=== PATIENT | male | born 1965 | race Caucasian/White ===

== ENCOUNTER 2018-12-21 16:47 | Emergency (ER) | payer OTHER ==
[~2018-12-21] VITALS: Ht 190.5 cm; Wt 215.0 kg
[2018-12-21] MEDS ORDERED: WELL100T2 PO (16:52)
[2018-12-21] MEDS ORDERED: NS 1,000 ML IV ONE (18:15)
--- NOTE | 2018-12-21 18:30 | REP ---
Clinical: Dizziness and weakness. Technique: PA and lateral. Comparison: None. Findings: Right hilar prominence may reflect adenopathy versus prominent pulmonary vasculature. Cardiac silhouette is normal. Lung da silva are clear. No consolidation, effusion, or pneumothorax. Skeletal structures are intact. Impression: Cannot exclude mild right hilar prominence. Electronically Signed by Ryan Hartman MD 12/21/2018 06:22 P
[2018-12-21 18:54] LABS: BASO % 0.6 % (0.0-1.0); EOS # 0.1 10^3/uL (0.0-0.50); EOS % 1.4 % (0.0-3.0); HEMATOCRIT 41.7 % (42.0-52.0); HEMOGLOBIN 14.2 g/dl (13.5-17.5); LYMPH # 0.4 10^3/uL (1.5-4.5); LYMPH % 6.1 % (24.0-44.0); MEAN CORPUSCULAR HGB CONC 34.1 g/dl (32.0-36.5); MONO # 0.7 10^3/uL (0.0-0.8); NEUTROPHILS # 5.8 10^3/uL (1.8-7.7); NEUTROPHILS % 81.5 % (36.0-66.0); PLATELET COUNT, AUTOMATED 227 10^3/uL (150-450); RED BLOOD COUNT 4.74 10^6/uL (4.30-6.10); WHITE BLOOD COUNT 7.1 10^3/uL (4.0-10.0)
[2018-12-21 19:26] LABS: ALBUMIN 4.3 GM/DL (3.2-5.2); ALT/SGPT 24 U/L (12-78); BILIRUBIN,TOTAL 0.7 MG/DL (0.2-1.0); BLOOD UREA NITROGEN 17 MG/DL (7-18); CALCIUM LEVEL 9.3 MG/DL (8.5-10.1); CARBON DIOXIDE LEVEL 30 MEQ/L (21-32); CHLORIDE LEVEL 96 MEQ/L (98-107); CPK CREATINE PHOSPHOKINASE 189 U/L (39-308); CREATININE FOR GFR 1.08 MG/DL (0.70-1.30); GLOMERULAR FILTRATION RATE > 60.0 (>56); GLUCOSE, FASTING 92 MG/DL (70-100); MB/CK RELATIVE INDEX 0.69 (< OR =4); POTASSIUM SERUM 4.2 MEQ/L (3.5-5.1); SODIUM LEVEL 135 MEQ/L (136-145); TOTAL PROTEIN 7.2 GM/DL (6.4-8.2); TROPONIN I < 0.02 NG/ML (< 0.10)
[2018-12-21 19:30] LABS: INFLUENZA A AMPLIFICATION POSITIVE (NEGATIVE); INFLUENZA B AMPLIFICATION NEGATIVE (NEGATIVE)
[2018-12-21 19:45] VITALS: BP 143/76
--- NOTE | 2018-12-22 09:28 | ECGEPIP ---
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
== END 2018-12-21 19:50 | disposition home or self-care (01) ==
LOC: M ED 16:47
DX: J09.X9 Influenza due to identified novel influenza A virus with other manifestations (principal); R94.31 Abnormal electrocardiogram [ECG] [EKG]; E66.01 Morbid (severe) obesity due to excess calories; I10 Essential (primary) hypertension; F43.10 Post-traumatic stress disorder, unspecified; F17.200 Nicotine dependence, unspecified, uncomplicated; Z79.899 Other long term (current) drug therapy

== ENCOUNTER 2021-03-18 18:19 | Inpatient (IN) | payer OTHER ==
[~2021-03-18] VITALS: Ht 190.5 cm; Wt 215.9 kg
[~2021-03-18 18:19] MED LIST: WELL100T2 PO
[2021-03-18] MEDS ORDERED: ACETAMINOPHEN 325 MG TAB PO ONE (19:20)
[2021-03-18] MEDS ORDERED: NS 500 ML IV ONE ×2 (19:20→21:45)
[2021-03-18 19:49] LABS: BASO % 0.2 % (0.0-1.0); EOS % 0.1 % (0.0-3.0); HEMATOCRIT 40.1 % (42.0-52.0); HEMOGLOBIN 13.2 g/dl (13.5-17.5); LYMPH # 0.3 10^3/uL (1.5-5.0); LYMPH % 1.8 % (24.0-44.0); MEAN CORPUSCULAR HEMOGLOBIN 28.8 pg (27.0-33.0); MEAN CORPUSCULAR HGB CONC 32.9 g/dl (32.0-36.5); MEAN CORPUSCULAR VOLUME 87.6 fl (80.0-96.0); MONO # 0.5 10^3/uL (0.0-0.8); MONO % 3.4 % (2.0-8.0); NEUTROPHILS # 14.5 10^3/uL (1.5-8.5); NEUTROPHILS % 93.6 % (36.0-66.0); PLATELET COUNT, AUTOMATED 212 10^3/uL (150-450); RED BLOOD COUNT 4.58 10^6/uL (4.30-6.10); WHITE BLOOD COUNT 15.4 10^3/uL (4.0-10.0)
--- NOTE | 2021-03-18 19:49 | REP ---
INDICATION: leg swelling. COMPARISON: 12/21/2018 TECHNIQUE: PORTABLE FINDINGS: The technique utilized in obtaining the radiograph has magnified the cardiac silhouette and attenuated the interstitial markings. THERE APPEARS TO BE THE DEVELOPMENT OF A SUBTLE OPACITY IN THE RIGHT LOWER LOBE, HOWEVER, THE EXAM IS PORTABLE AND THE RIGHT CP ANGLE AT HAS NOT BEEN INCLUDED ON THE RADIOGRAPH. THERE IS CARDIOMEGALY SUSPECTED BUT ACCENTUATED BY TECHNIQUE. THE OSSEOUS STRUCTURES ARE WITHIN NORMAL LIMITS. IMPRESSION: POSSIBLE DEVELOPING RIGHT LOWER LOBE PNEUMONIA. PA AND LATERAL VIEWS OF THE CHEST RECOMMENDED. <Electronically signed by Bill Lawler > 03/18/211944
[2021-03-18 19:53] LABS: ALBUMIN 3.9 GM/DL (3.2-5.2); ALT/SGPT 28 U/L (12-78); BILIRUBIN,DIRECT 0.3 MG/DL (0.0-0.2); BILIRUBIN,TOTAL 0.9 MG/DL (0.2-1.0); BLOOD UREA NITROGEN 21 MG/DL (7-18); C REACTIVE PROTEIN QUANTITATIV 3.26 MG/DL (0.00-0.30); CALCIUM LEVEL 8.7 MG/DL (8.5-10.1); CARBON DIOXIDE LEVEL 28 MEQ/L (21-32); CHLORIDE LEVEL 100 MEQ/L (98-107); CK-MB VALUE MASS < 1.0 NG/ML (<3.6); CPK CREATINE PHOSPHOKINASE 131 U/L (39-308); CREATININE FOR GFR 1.11 MG/DL (0.70-1.30); GLOMERULAR FILTRATION RATE > 60.0 (>56); GLUCOSE, FASTING 106 MG/DL (70-100); MB/CK RELATIVE INDEX 0.76 (< OR =4); POTASSIUM SERUM 3.8 MEQ/L (3.5-5.1); SODIUM LEVEL 133 MEQ/L (136-145); TOTAL PROTEIN 6.9 GM/DL (6.4-8.2); TROPONIN I < 0.02 NG/ML (< 0.10)
[2021-03-18 20:41] LABS: ERYTHROCYTE SEDIMENTATION RATE 17 mm/hr (0-20)
[2021-03-18] MEDS ORDERED: CEFTAROLINE FOSAMIL 600 MG in D5W MINI-BAG PLUS 50 ML IV ONE (21:15)
--- NOTE | 2021-03-18 21:27 | ECGEPIP ---
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
[2021-03-18] MEDS ORDERED: IBUPROFEN 800 MG TAB PO ONE (21:45)
--- NOTE | 2021-03-18 21:45 | REPVR ---
PROCEDURE INFORMATION: Exam: XR Chest Exam date and time: 03/18/2021 9:06 PM Age: 55 years old Clinical indication: Shortness of breath; Additional info: Further evaluate for rll pneumonia TECHNIQUE: Imaging protocol: XR of the chest. Views: 2 views. COMPARISON: TX Chest, 1 view 03/18/2021 7:31 PM FINDINGS: Lungs: Unremarkable. No consolidation. Pleural spaces: Unremarkable. No pleural effusion. No pneumothorax. Heart/Mediastinum: Unremarkable. No cardiomegaly. Bones/joints: Unremarkable. IMPRESSION: No acute findings. Electronically signed by: Braulio Abreu On 03/18/2021 21:45:03 PM
[2021-03-18 22:17] LABS: RSV AMPLIFICATION NEGATIVE (NEGATIVE)
[2021-03-18] MEDS ORDERED: MOM 30ML SUSPENSION UDC PO PRN (23:25)
[2021-03-18] MEDS ORDERED: VANCOMYCIN HCL 1,000 MG, VIAL MATE ADAPTER 1 EACH in NS 250 ML IV SCH (23:25)
[2021-03-18] MEDS ORDERED: MAALOX 30 ML SUSP *UDC PO PRN (23:25)
[2021-03-19] MEDS ORDERED: LATU80TA PO (00:19)
[2021-03-19] MEDS ORDERED: TRIA37.53 PO (00:19)
[2021-03-19] MEDS ORDERED: MELO15TA28 PO (00:19)
[2021-03-19] MEDS ORDERED: LISI30TA4 PO (00:19)
[2021-03-19] MEDS ORDERED: MULTLIQ7 PO (00:19)
[2021-03-19] MEDS ORDERED: DICL1GEL3 TOP (00:19)
[2021-03-19] MEDS ORDERED: CRES40TA PO (00:19)
[2021-03-19] MEDS ORDERED: POTA1TAB23 PO (00:19)
[2021-03-19] MEDS ORDERED: BUPR300T92 PO (00:19)
[2021-03-19] MEDS ORDERED: VANCOMYCIN HCL 1,000 MG, VIAL MATE ADAPTER 1 EACH in NS 250 ML IV ONE ×4 (01:00)
--- NOTE | 2021-03-19 01:03 | HPEPDOC ---
[facility] Medical History & Physical Date of Admission Mar 19, 2021 Date of Service: Mar 19, 2021 History and Physical CHIEF COMPLAINT: Right leg erythema and drainage HISTORY OF PRESENT ILLNESS: The patient is a 55 male with a past medical history of hypertension, hypercholesterolemia, obstructive sleep apnea on CPAP at home, PTSD, depression, presents with reported history of right leg swelling, erythema and drainage from the anterior aspect of tibia. He reports mowing the lawn and scratching his leg on some bushes. On arrival to the ED, found to have leukocytosis of 15.4, as well as fever to 102.6 and tachycardia of 108. Patient also had finally able crawl pressures are 100/50. Lactic acid 1.4. Patient was given a dose of Ceftin earlier in the ER. Patient will be admitted to hospitalist service for management of sepsis secondary to right lower extremity cellulitis. Patient started on empiric vancomycin. PAST MEDICAL HISTORY: HTN HLD MYRA on CPAP PTSD Depression Osteoarthritis of bilateral knees SOCIAL HISTORY: Former smoker, quit 3 years ago Denies etoh use Denies illicit drug use Lives with girlfriend at home Uses walker and cane FAMILY HISTORY: reviewed with patient, no relevant hx reported ALLERGIES: Please see below. REVIEW OF SYSTEMS: 10 point ROS completed, relevant findings are noted in HPI. HOME MEDICATIONS: Please see below. PHYSICAL EXAMINATION: VITAL SIGNS: please see below General: NAD, comfortable HEENT: PERRLA, EOMI, sclerae clear Neck: supple, normal ROM, no JVD Respiratory: lungs CTAB, no wheeze, no rales, no crackles CVS: RRR, normal S1, S2, no murmurs Abdo: soft, no masses, no hepatosplenomegaly, BS+, no rebound tenderness Extremities: 2+ gravity dependent edema, chronic venous stasis changes. R leg mid nava aspect drainage from area of erythema MSK: no joint deformities, normal ROM Neuro: no focal neuro deficits, moving all 4 extremities, CN2-12 intact. Strength 5/5 in all 4 extremities. No nystagmus. Psych: calm, cooperative, AAO x 3 LABORATORY DATA: See below. IMAGIN view CXR (03/18/21): FINDINGS: Lungs: Unremarkable. No consolidation. Pleural spaces: Unremarkable. No pleural effusion. No pneumothorax. Heart/Mediastinum: Unremarkable. No cardiomegaly. Bones/joints: Unremarkable. IMPRESSION: No acute findings. MICROBIOLOGY: Please see below. ASSESSMENT: 55 male with a past medical history of hypertension, hype rcholesterolemia, obstructive sleep apnea on CPAP at home, PTSD, depression, presents with reported history of right leg swelling, erythema and drainage from the anterior aspect of tibia. Diagnosed with cellulitis. Meets sepsis criteria. PLAN: #Sepsis 2/2 RLE purulent cellulitis - meets criteria based on tachycardia, fever, leukocytosis of 15.4. Known source - received dose of ceftaroline in ER - c/w antibiotics therapy, vancomycin - ordered venous duplex to r/o DVT bilateral LE - blood cultures sent. Wound culture of purluent material sent #MYRA - nocturnal O2 - can bring home CPAP #HTN - resume lisinopril 15 mg daily - resume triamterene/HCTZ 37.5/25 #depression/PTSD - takes latuda, buproprion XL. Resume. #Morbid obesity - BMI 59.5 - complicates care DVT ppx: heparin, SCDs. TEDs. Vital Signs Vital Signs Date Time Temp Pulse Resp B/P (MAP) Pulse Ox O2 Delivery O2 Flow Rate FiO2 03/18/21 23:30 98.9 87 20 103/58 (73) 99 Room Air Laboratory Data Labs 24H Laboratory Tests 2 03/18/21 18:51: Lactic Acid Level 1.4 03/18/21 19:19: Immature Granulocyte % (Auto) 0.9, Neutrophils (%) (Auto) 93.6H, Lymphocytes (%) (Auto) 1.8L, Monocytes (%) (Auto) 3.4, Eosinophils (%) (Auto) 0.1, Basophils (%) (Auto) 0.2, Neutrophils # (Auto) 14.5H, Lymphocytes # (Auto) 0.3L, Monocytes # (Auto) 0.5, Eosinophils # (Auto) 0.0, Basophils # (Auto) 0.0, Nucleated Red Blood Cells % (auto) 0.0, Erythrocyte Sedimentation Rate 17, Anion Gap 5L, Glomerular Filtration Rate > 60.0, Calcium Level 8.7, Total Bilirubin 0.9, Direct Bilirubin 0.3H, Aspartate Amino Transf (AST/SGOT) 19, Alanine Aminotransferase (ALT/SGPT) 28, Alkaline Phosphatase 76, Total Creatine Kinase 131, Creatine Kinase MB < 1.0, Creatine Kinase MB Relative Index 0.76, Troponin I < 0.02, C-Reactive Protein, Quantitative 3.26H, Total Protein 6.9, Albumin 3.9, Albumin/Globulin Ratio 1.3 03/18/21 21:30: Coronavirus (COVID-19)(PCR) NEGATIVE, Influenza Type A (RT-PCR) NEGATIVE, Influenza Type B (RT-PCR) NEGATIVE, Respiratory Syncytial Virus (PCR) NEGATIVE CBC/BMP Laboratory Tests 03/18/21 19:19 Microbiology Microbiology 03/18/21 Blood Culture, Received Pending 03/18/21 Blood Culture, Received Pending Home Medications Scheduled Bupropion HCl (Bupropion Xl) 300 Mg Tab.er.24h, 300 MG PO DAILY Lisinopril (Lisinopril) 30 Mg Tablet, 15 MG PO DAILY Lurasidone HCl (Latuda) 80 Mg Tablet, 40 MG PO DAILY Meloxicam (Meloxicam) 15 Mg Tablet, 15 MG PO DAILY Multivit-Minerals/Ferrous Fum (Multivitamin Liquid) 9 Mg/15 Ml Liquid, 15 ML PO BIDWM Potassium Chloride (Potassium Chloride) 10 Meq Tablet.er, 20 MEQ PO DAILY Rosuvastatin Calcium (Crestor) 40 Mg Tablet, 40 MG PO DAILY Triamterene/Hydrochlorothiazid (Triamterene-Hctz 37.5-25 mg Cp) 1 Each Capsule, 1 CAP PO DAILY Scheduled PRN Diclofenac Sodium (Diclofenac Sodium) 1% 100GM Gel..gram., 4 GM TOP QID PRN for PAIN LEVEL 1-5 APPLIES TO HANDS AND KNEES Allergies Coded Allergies: bee venom protein (honey bee) (Verified Allergy, Severe, 03/18/21) YOLI MEAD MD Mar 19, 2021 01:03
--- NOTE | 2021-03-19 01:49 | REPVR ---
PROCEDURE INFORMATION: Exam: US Duplex Lower Extremity Veins, Bilateral Exam date and time: 03/18/2021 12:29 AM Age: 55 years old Clinical indication: Edema, localized; Lower extremity, bilateral; Additional info: R/O dvt TECHNIQUE: Imaging protocol: Real-time duplex ultrasound of the extremities with 2-D jiménez scale, color Doppler flow and spectral waveform analysis with image documentation. Complete exam focused on the bilateral lower extremity veins. COMPARISON: No relevant prior studies available. FINDINGS: The calf veins are not identified bilaterally secondary to body habitus, and therefore could not be evaluated for the presence of calf vein DVT. If there is clinical suspicion for calf vein DVT, for imaging purposes, lower extremity venogram may be necessary in this patient. There is spontaneous, phasic color flow and compressibility of the deep veins otherwise. Augmentation to flow is noted. There is no evidence of DVT in the evaluated bilateral lower extremities. The visualized bilateral proximal greater saphenous veins are patent. No perivenous soft tissue fluid collection seen within the visualized field of view. IMPRESSION: The calf veins could not be evaluated as discussed above. No evidence of DVT in the visualized bilateral lower extremities otherwise. Electronically signed by: Keith Kent On 03/19/2021 01:49:09 AM
[2021-03-19] MEDS: HEPARIN SOD (PORCINE) 5000UNITS/ML 1ML VIAL/SYRINGE SC SCH ×3 (06:12→21:07)
[2021-03-19 07:17] LABS: BASO % 0.1 % (0.0-1.0); HEMATOCRIT 38.9 % (42.0-52.0); HEMOGLOBIN 12.7 g/dl (13.5-17.5); LYMPH # 0.3 10^3/uL (1.5-5.0); LYMPH % 2.1 % (24.0-44.0); MEAN CORPUSCULAR HEMOGLOBIN 29.2 pg (27.0-33.0); MEAN CORPUSCULAR HGB CONC 32.6 g/dl (32.0-36.5); MEAN CORPUSCULAR VOLUME 89.4 fl (80.0-96.0); MONO # 0.5 10^3/uL (0.0-0.8); MONO % 3.2 % (2.0-8.0); NEUTROPHILS # 15.2 10^3/uL (1.5-8.5); NEUTROPHILS % 93.8 % (36.0-66.0); PLATELET COUNT, AUTOMATED 181 10^3/uL (150-450); RED BLOOD COUNT 4.35 10^6/uL (4.30-6.10); WHITE BLOOD COUNT 16.2 10^3/uL (4.0-10.0)
[2021-03-19 07:35] LABS: HEMOGLOBIN A1c 5.4 %
[2021-03-19 07:50] LABS: ALBUMIN 3.3 GM/DL (3.2-5.2); C REACTIVE PROTEIN QUANTITATIV 14.9 MG/DL (0.00-0.30); CALCIUM LEVEL 8.7 MG/DL (8.5-10.1); CREATININE FOR GFR 1.35 MG/DL (0.70-1.30); GLOMERULAR FILTRATION RATE 58.9 (>56); MAGNESIUM LEVEL 1.6 MG/DL (1.8-2.4); POTASSIUM SERUM 4.1 MEQ/L (3.5-5.1); TOTAL PROTEIN 6.4 GM/DL (6.4-8.2)
[2021-03-19] MEDS ORDERED: buPROPion **XL** TABLET 150MG (WELLBUTRIN XL) PO SCH (09:00)
[2021-03-19] MEDS ORDERED: LURASIDONE HCL 40 MG TAB (LATUDA) PO SCH (09:00)
[2021-03-19] MEDS: POTASSIUM CHLORIDE 10 MEQ SR TABLET PO SCH (09:02)
[2021-03-19] MEDS: DOCUSATE SODIUM 100MG CAPSULE PO SCH ×2 (09:02→21:06)
[2021-03-19] MEDS: ACETAMINOPHEN TAB 650MG DOSE (2X325MG) PO PRN ×2 (09:03→19:37)
[2021-03-19] MEDS: lisinopriL 5 MG TAB PO SCH (09:03)
[2021-03-19] MEDS: ROSUVASTATIN 10 MG TAB (CRESTOR) PO SCH (09:04)
[2021-03-19] MEDS: VANCOMYCIN HCL 750 MG, VIAL MATE ADAPTER 1 EACH in NS 250 ML IV SCH ×4 (09:04→16:11)
[2021-03-19] MEDS: DYAZIDE 37.5/25 CAP (TRIAM/HCTZ) PO SCH (10:18)
[2021-03-19 14:45] VITALS: BP 119/77
--- NOTE | 2021-03-19 15:24 | IPNPDOC ---
Date Seen The patient was seen on 03/19/21. Progress Note SUBJECTIVE: This is hospital day 2. Patient reports that he is feeling well. He denies any fevers, chills, night sweats at this time. This is day #1 of vancomycin. Patient received ceftaroline yesterday. Patient denies any nausea, vomiting, diarrhea, constipation at this time. He denies any numbness or tingling in his upper or lower extremities. He reports some residual pain in the right leg which is decreased from admission. OBJECTIVE PHYSICAL EXAMINATION: VITAL SIGNS: Please see below. GENERAL: Patient is lying back in bed in no acute distress, he is cooperative on exam, and able to answer questions appropriately. HEENT: Normocephalic, atraumatic. No scleral icterus, EOMI, nares patent, oropharyngeal mucosa moist. CARDIOVASCULAR: Distant heart sounds secondary to body habitus, S1 and S2 auscultated however no murmurs, rubs, gallops could be appreciated. RESPIRATORY: Clear to auscultation bilaterally with decreased heart sounds secondary to body habitus. ABDOMINAL: Soft, nontender, nondistended, bowel sounds present. There is an intertriginous rash present of lower abdominal fold. EXTREMITIES: Bilateral pitting edema present right greater than left. Anterior right lower extremity erythematous and pitting edema +2 present. There is a draining ulcer present on the anterior right lower extremity. Radial and pedal pulses equal and present bilaterally. NEUROLOGICAL: No motor or sensory loss of upper and lower extremities. Plus 5 out of 5 grossly. PSYCHOLOGICAL: Flat affect, alert and oriented x3. LABORATORY DATA, IMAGING STUDIES, MICROBIOLOGY: Please see below. ASSESSMENT AND PLAN: Pt is a 55 YO male with morbid obesity who presents with RLE cellulitis on day #2 of antibiotics and day #1 of vancomycin. (One day of ceftaroline.) #Sepsis 2/2 RLE cellulitis, resolving. Continue IV antibiotics; day 2 of abx, vancomycin day #1. Continue daily CBC with differential monitoring. No DVT present on vascular ultrasound. Given 500 mL NS. Wound culture showed no growth Blood cultures still pending. #MYRA Please continue to use nocturnal O2 Patient may use home CPAP #Hypertension Continue home lisinopril 15 mg daily Continue triamterene/HCTZ 37.5/25 home medication #Mood disorders including depression and PTSD Continue home Latuda, bupropion #Morbid obesity BMI 59.5 Complicates care DVT prophylaxis ordered: Heparin 5000 U TID DISPOSITION: Med/Surg. Consider possible discharge tomorrow if patient continues to show resolution of sepsis. VS, I&O, 24H, [place] Vital Signs/I&O Vital Signs Date Time Temp Pulse Resp B/P (MAP) Pulse Ox O2 Delivery O2 Flow Rate FiO2 03/19/21 12:15 97.8 70 20 125/62 (83) 96 Room Air I&O- Last 24 Hours up to 6 AM 03/19/21 06:00 Intake Total 1590 ml Balance 1590 ml Laboratory Data 24H LABS Laboratory Tests 2 03/18/21 18:51: Lactic Acid Level 1.4 03/18/21 19:19: Immature Granulocyte % (Auto) 0.9, Neutrophils (%) (Auto) 93.6H, Lymphocytes (%) (Auto) 1.8L, Monocytes (%) (Auto) 3.4, Eosinophils (%) (Auto) 0.1, Basophils (%) (Auto) 0.2, Neutrophils # (Auto) 14.5H, Lymphocytes # (Auto) 0.3L, Monocytes # (Auto) 0.5, Eosinophils # (Auto) 0.0, Basophils # (Auto) 0.0, Nucleated Red Blood Cells % (auto) 0.0, Erythrocyte Sedimentation Rate 17, Anion Gap 5L, Glomerular Filtration Rate > 60.0, Calcium Level 8.7, Total Bilirubin 0.9, Direct Bilirubin 0.3H, Aspartate Amino Transf (AST/SGOT) 19, Alanine Aminotransferase (ALT/SGPT) 28, Alkaline Phosphatase 76, Total Creatine Kinase 131, Creatine Kinase MB < 1.0, Creatine Kinase MB Relative Index 0.76, Troponin I < 0.02, C-Reactive Protein, Quantitative 3.26H, Total Protein 6.9, Albumin 3.9, Albumin/Globulin Ratio 1.3 03/18/21 21:30: Coronavirus (COVID-19)(PCR) NEGATIVE, Influenza Type A (RT-PCR) NEGATIVE, Influenza Type B (RT-PCR) NEGATIVE, Respiratory Syncytial Virus (PCR) NEGATIVE 03/19/21 07:04: Immature Granulocyte % (Auto) 0.8, Neutrophils (%) (Auto) 93.8H, Lymphocytes (%) (Auto) 2.1L, Monocytes (%) (Auto) 3.2, Eosinophils (%) (Auto) 0.0, Basophils (%) (Auto) 0.1, Neutrophils # (Auto) 15.2H, Lymphocytes # (Auto) 0.3L, Monocytes # (Auto) 0.5, Eosinophils # (Auto) 0.0, Basophils # (Auto) 0.0, Nucleated Red Blood Cells % (auto) 0.0, Anion Gap 6L, Glomerular Filtration Rate 58.9, Calcium Level 8.7, Total Bilirubin 1.0, Aspartate Amino Transf (AST/SGOT) 19, Alanine Aminotransferase (ALT/SGPT) 27, Alkaline Phosphatase 71, C-Reactive Protein, Quantitative 14.90H, Total Protein 6.4, Albumin 3.3, Albumin/Globulin Ratio 1.1, Estimated Mean Plasma Glucose 108, Hemoglobin A1c 5.4, Magnesium Level 1.6L CBC/BMP Laboratory Tests 03/18/21 19:19 03/19/21 07:04 Microbiology Microbiology 03/19/21 Gram Stain - Final, Resulted 03/19/21 Wound Culture, Resulted Pending 03/18/21 Blood Culture, Received Pending 03/18/21 Blood Culture, Received Pending GME ATTESTATION GME ATTESTATION My faculty preceptor for this patient encounter was physically present during the encounter and was fully available. All aspects of the patient interview, examination, medical decision making process, and medical care plan development were reviewed and approved by the faculty preceptor. The faculty preceptor is aware and concurs with the plan as stated in the body of this note and will attest to such by his/her cosignature. ATTENDING NOTE I personally examined the patient and discussed her findings and management as detailed by the resident physician above. Elvin Yi DO Mar 19, 2021 15:24 CORY LIMON MD Mar 20, 2021 07:37
[2021-03-19 22:00] VITALS: BP 149/78
[2021-03-20] MEDS: VANCOMYCIN HCL 750 MG, VIAL MATE ADAPTER 1 EACH in NS 250 ML IV SCH ×7 (00:10→23:45)
[2021-03-20 06:00] VITALS: BP 155/85
[2021-03-20 06:21] LABS: BASO % 0.2 % (0.0-1.0); EOS # 0.1 10^3/uL (0.0-0.5); EOS % 0.8 % (0.0-3.0); HEMATOCRIT 36.7 % (42.0-52.0); HEMOGLOBIN 11.9 g/dl (13.5-17.5); LYMPH # 0.9 10^3/uL (1.5-5.0); LYMPH % 10.5 % (24.0-44.0); MEAN CORPUSCULAR HEMOGLOBIN 28.7 pg (27.0-33.0); MEAN CORPUSCULAR HGB CONC 32.4 g/dl (32.0-36.5); MEAN CORPUSCULAR VOLUME 88.6 fl (80.0-96.0); MONO # 0.5 10^3/uL (0.0-0.8); MONO % 6.1 % (2.0-8.0); NEUTROPHILS % 81.9 % (36.0-66.0); PLATELET COUNT, AUTOMATED 166 10^3/uL (150-450); RED BLOOD COUNT 4.14 10^6/uL (4.30-6.10); WHITE BLOOD COUNT 8.5 10^3/uL (4.0-10.0)
[2021-03-20] MEDS: HEPARIN SOD (PORCINE) 5000UNITS/ML 1ML VIAL/SYRINGE SC SCH ×3 (06:27→21:05)
[2021-03-20 06:52] LABS: ALT/SGPT 25 U/L (12-78); BILIRUBIN,TOTAL 0.7 MG/DL (0.2-1.0); BLOOD UREA NITROGEN 14 MG/DL (7-18); CALCIUM LEVEL 8.6 MG/DL (8.5-10.1); CARBON DIOXIDE LEVEL 29 MEQ/L (21-32); CHLORIDE LEVEL 102 MEQ/L (98-107); CREATININE FOR GFR 1.02 MG/DL (0.70-1.30); GLOMERULAR FILTRATION RATE > 60.0 (>56); GLUCOSE, FASTING 106 MG/DL (70-100); POTASSIUM SERUM 3.4 MEQ/L (3.5-5.1); SODIUM LEVEL 136 MEQ/L (136-145)
[2021-03-20 08:00] VITALS: BP 123/73
[2021-03-20] MEDS: POTASSIUM CHLORIDE 10 MEQ SR TABLET PO SCH (09:00)
[2021-03-20] MEDS ORDERED: NYSTATIN OINTMENT 15 GM TOP SCH (09:00)
[2021-03-20] MEDS ORDERED: POTASSIUM CHLORIDE 10 MEQ SR TABLET PO ONE (10:00)
[2021-03-20] MEDS: DOCUSATE SODIUM 100MG CAPSULE PO SCH ×2 (10:05→21:04)
[2021-03-20] MEDS: lisinopriL 5 MG TAB PO SCH (10:06)
[2021-03-20] MEDS: ROSUVASTATIN 10 MG TAB (CRESTOR) PO SCH (10:07)
[2021-03-20] MEDS: DYAZIDE 37.5/25 CAP (TRIAM/HCTZ) PO SCH (10:20)
--- NOTE | 2021-03-20 10:49 | IPNPDOC ---
Date Seen The patient was seen on 03/20/21. Progress Note SUBJECTIVE: This is hospital day 2. Patient reports feeling well and denies any fevers, chills, night sweats at this time. He does report that he had 1 recorded fever of 101.7 overnight which was well-managed on Tylenol. He is tolerating breakfast well and denies any nausea, vomiting, diarrhea, constipation at this time. Patient has requested for his Wellbutrin and Latuda to be moved to nighttime dosing as that is how he took it at home. OBJECTIVE PHYSICAL EXAMINATION: VITAL SIGNS: Please see below. GENERAL: Patient is lying back in bed in no acute distress, he is cooperative on exam, and able to answer questions appropriately. HEENT: Normocephalic, atraumatic. No scleral icterus, EOMI, nares patent, oropharyngeal mucosa moist. CARDIOVASCULAR: Distant heart sounds secondary to body habitus, S1 and S2 auscultated however no murmurs, rubs, gallops could be appreciated. RESPIRATORY: Clear to auscultation bilaterally with decreased heart sounds secondary to body habitus. ABDOMINAL: Soft, nontender, nondistended, bowel sounds present. There is an intertriginous rash present of lower abdominal fold. EXTREMITIES: Bilateral pitting edema present right greater than left. Anterior right lower extremity erythematous and pitting edema +2 present. There is a draining ulcer present on the anterior right lower extremity. Radial and pedal pulses equal and present bilaterally. Continues from yesterday. NEUROLOGICAL: No motor or sensory loss of upper and lower extremities. Plus 5 out of 5 grossly. PSYCHOLOGICAL: Flat affect, alert and oriented x3. LABORATORY DATA, IMAGING STUDIES, MICROBIOLOGY: Please see below. DVT prophylaxis ordered: ASSESSMENT AND PLAN: Pt is a 55 YO male with morbid obesity who presents with RLE cellulitis on day #3 of antibiotics and day #2 of vancomycin. (One day of ceftaroline on admission.) Patient's blood cultures are positive for gram-po sitive rods and the patient continues to have fevers intermittently. He is hospitalized for IV vancomycin for gram-positive grupo bacteremia. #Sepsis 2/2 RLE cellulitis, resolving. Continue IV antibiotics; day 2 of abx, vancomycin day #2. Continue daily CBC with differential monitoring. No DVT present on vascular ultrasound. Given 500 mL NS on 03/18/2021; patient is able to remain normotensive without IV fluid administration at this time. Wound culture shows growth of Corynebacterium. Blood cultures shows growth of gram-positive rods. Repeat blood cultures have been ordered. #Intertrigo noticed rash Likely fungal Start topical nystatin powder administration #MYRA Please continue to use nocturnal O2 Patient may use home CPAP #Hypertension Continue home lisinopril 15 mg daily Continue triamterene/HCTZ 37.5/25 home medication #Mood disorders including depression and PTSD Continue home Latuda, bupropion Switch to nighttime dosing. #Morbid obesity BMI 59.5 Complicates care DVT prophylaxis ordered: Heparin 5000 U TID. DISPOSITION: Med/Surg. Continue IV antibiotics with daily monitoring of CBC with differential due to bacteremia. VS, I&O, 24H, Fishbone Vital Signs/I&O Vital Signs Date Time Temp Pulse Resp B/P (MAP) Pulse Ox O2 Delivery O2 Flow Rate FiO2 03/20/21 10:06 123/73 03/20/21 08:00 98.0 91 18 94 Room Air I&O- Last 24 Hours up to 6 AM 03/20/21 06:00 Intake Total 1630 ml Output Total 4500 ml Balance -2870 ml Laboratory Data 24H LABS Laboratory Tests 2 03/19/21 15:08: Methicillin-Resist S.aureus DNA PCR NOT DETECTED 03/19/21 23:03: Vancomycin Level Trough 14.6 03/20/21 06:05: Immature Granulocyte % (Auto) 0.5, Neutrophils (%) (Auto) 81.9H, Lymphocytes (%) (Auto) 10.5L, Monocytes (%) (Auto) 6.1, Eosinophils (%) (Auto) 0.8, Basophils (%) (Auto) 0.2, Neutrophils # (Auto) 7.0, Lymphocytes # (Auto) 0.9L, Monocytes # (Auto) 0.5, Eosinophils # (Auto) 0.1, Basophils # (Auto) 0.0, Nucleated Red Blood Cells % (auto) 0.0, Anion Gap 5L, Glomerular Filtration Rate > 60.0, Calcium Level 8.6, Magnesium Level 2.0, Total Bilirubin 0.7, Aspartate Amino Transf (AST/SGOT) 15, Alanine Aminotransferase (ALT/SGPT) 25, Alkaline Phosphatase 74, C-Reactive Protein, Quantitative 18.90H, Total Protein 6.0L, Albumin 3.0L, Albumin/Globulin Ratio 1.0 CBC/BMP Laboratory Tests 03/20/21 06:05 Microbiology Microbiology 03/20/21 Blood Culture, Received Pending 03/19/21 Gram Stain - Final, Resulted 03/19/21 Wound Culture - Preliminary, Resulted Corynebacterium Species 03/18/21 Blood Culture - Preliminary, Resulted 03/18/21 Blood Culture - Preliminary, Resulted No growth after 24 hours . All specim... GME ATTESTATION GME ATTESTATION My faculty preceptor for this patient encounter was physically present during the encounter and was fully available. All aspects of the patient interview, examination, medical decision making process, and medical care plan development were reviewed and approved by the faculty preceptor. The faculty preceptor is aware and concurs with the plan as stated in the body of this note and will attest to such by his/her cosignature. ATTENDING NOTE I personally examined the patient and discussed the findings and plan as detailed above by the resident physician above. Elvin Yi DO Mar 20, 2021 10:49 CORY LIMON MD Mar 20, 2021 12:57
[2021-03-20 14:00] VITALS: BP 130/78
--- NOTE | 2021-03-20 16:24 | ECHO ---
ECHOCARDIOGRAM DATE OF PROCEDURE: 03/19/2021 Age: 55 Gender: Male Height: 75 inches Weight: 476 pounds Body surface area: 3.17 m2 Inpatient. REFERRING PHYSICIAN: Dr. Begum INDICATION: Edema. MEASUREMENTS: 2D Measurements: RV - 4.3 cm LV - 5.4 cm Septum 1.4 cm Posterior wall 1.4 cm Aortic root 4.5 cm Ascending aorta 4.2 cm Aortic arch 3.1 cm LYMPHADENOPATHY 4.8 cm LVEF 75% Doppler Measurements: AV - 1.7 m/s LVOT 1.19 m/s LVOT diameter 2.2 cm MV-E 87, A 66 E/A ratio 1.3 Early mitral deceleration time 193 msec E prime medial 7.5 A prime medial 11.5 E prime lateral 11.4 Average E/E prime ratio 9.2/PCWP 13.3 mmHg PV - 0.99 m/s Pulmonary artery acceleration time 84 msec PASP 44 mmHg? IVC - 3.1 c/m COMMENTS: Normal sinus rhythm without intermittent intraventricular conduction disturbance. Technically challenging study in light of patient's body habitus, but some diagnostically useful information was still obtained. M-mode and 2-dimensional echocardiography was performed with pulse, continuous wave, color flow, and tissue Doppler studies. Moderate symmetrical left ventricular hypertrophy with hyperkinetic wall motion. Moderately dilated left atrium with grade 2 LV diastolic dysfunction but currently normal estimated mean left atrial pressure. Mildly dilated right ventricle with normal wall motion and Doppler evidence of at least moderate pulmonary hypertension. Mild to moderately dilated right ventricle and inferior vena cava with reduced respiratory collapse, in keeping with an elevated central venous pressure. Mildly dilated aortic root and ascending aorta but normal aortic arch diameter. Mild aortic valvular sclerosis without stenosis. Could not rule out a trace to very mild degree of aortic insufficiency. Normal-appearing mitral valvular apparatus with no more than trace insufficiency. Normal-appearing tricuspid valve with only very mild insufficiency than was visible. No apparent intracardiac mass or pericardial effusion.
[2021-03-20] MEDS: NYSTATIN 100,000 UNITS/GM TOPICAL PWD 15 GM TOP SCH (17:04)
[2021-03-20] MEDS ORDERED: buPROPion **XL** TABLET 150MG (WELLBUTRIN XL) PO SCH (21:00)
[2021-03-20] MEDS ORDERED: LURASIDONE HCL 40 MG TAB (LATUDA) PO SCH (21:00)
[2021-03-20 22:00] VITALS: BP 138/75
[2021-03-21] MEDS: VANCOMYCIN HCL 750 MG, VIAL MATE ADAPTER 1 EACH in NS 250 ML IV SCH ×2 (01:16→07:46)
[2021-03-21] MEDS: HEPARIN SOD (PORCINE) 5000UNITS/ML 1ML VIAL/SYRINGE SC SCH (05:27)
[2021-03-21 06:00] VITALS: BP 139/66
[2021-03-21] MEDS: ACETAMINOPHEN TAB 650MG DOSE (2X325MG) PO PRN (06:08)
[2021-03-21 07:12] LABS: BASO % 0.6 % (0.0-1.0); EOS # 0.2 10^3/uL (0.0-0.5); EOS % 3.4 % (0.0-3.0); HEMATOCRIT 37.7 % (42.0-52.0); HEMOGLOBIN 12.2 g/dl (13.5-17.5); LYMPH % 19.5 % (24.0-44.0); MEAN CORPUSCULAR HGB CONC 32.4 g/dl (32.0-36.5); MEAN CORPUSCULAR VOLUME 89.8 fl (80.0-96.0); MONO # 0.5 10^3/uL (0.0-0.8); MONO % 9.1 % (2.0-8.0); NEUTROPHILS # 3.4 10^3/uL (1.5-8.5); PLATELET COUNT, AUTOMATED 190 10^3/uL (150-450); WHITE BLOOD COUNT 5.1 10^3/uL (4.0-10.0)
[2021-03-21 07:51] LABS: ALBUMIN 2.9 GM/DL (3.2-5.2); ALT/SGPT 51 U/L (12-78); BILIRUBIN,TOTAL 0.4 MG/DL (0.2-1.0); BLOOD UREA NITROGEN 13 MG/DL (7-18); CALCIUM LEVEL 8.9 MG/DL (8.5-10.1); CARBON DIOXIDE LEVEL 32 MEQ/L (21-32); CHLORIDE LEVEL 100 MEQ/L (98-107); CREATININE FOR GFR 1.05 MG/DL (0.70-1.30); GLOMERULAR FILTRATION RATE > 60.0 (>56); GLUCOSE, FASTING 142 MG/DL (70-100); MAGNESIUM LEVEL 1.9 MG/DL (1.8-2.4); POTASSIUM SERUM 3.8 MEQ/L (3.5-5.1); SODIUM LEVEL 135 MEQ/L (136-145); TOTAL PROTEIN 6.1 GM/DL (6.4-8.2)
[2021-03-21 08:00] VITALS: BP 120/68
[2021-03-21] MEDS ORDERED: NYSTATIN 100,000 UNITS/GM TOPICAL PWD 15 GM TOP SCH (09:00)
[2021-03-21] MEDS ORDERED: BACT800T5 PO (09:40)
[2021-03-21] MEDS ORDERED: NYST10006 TOP (09:40)
[2021-03-21] MEDS: DOCUSATE SODIUM 100MG CAPSULE PO SCH (10:01)
[2021-03-21] MEDS: NYSTATIN 100,000 UNITS/GM TOPICAL PWD 15 GM TOP SCH (10:01)
[2021-03-21 10:03] VITALS: BP 122/72
[2021-03-21] MEDS: lisinopriL 5 MG TAB PO SCH (10:03)
[2021-03-21] MEDS: DYAZIDE 37.5/25 CAP (TRIAM/HCTZ) PO SCH (10:04)
[2021-03-21] MEDS: POTASSIUM CHLORIDE 10 MEQ SR TABLET PO SCH (10:04)
[2021-03-21] MEDS: ROSUVASTATIN 10 MG TAB (CRESTOR) PO SCH (10:05)
--- NOTE | 2021-03-21 10:47 | DS.PDOC ---
Discharge Summary General Date of Admission Mar 18, 2021 at 18:20 Date of Discharge 03/21/2021 Attending Physician: CORY LIMON MD Discharge Summary PROCEDURES PERFORMED DURING STAY: None ADMITTING DIAGNOSES: RLE cellulitis DISCHARGE DIAGNOSES: RLE cellulitis sepsis 2/2 cellulitis Abdominal pannus fungal intertrigo Obesity HTN HLD MYRA on CPAP PTSD Depression Osteoarthritis of bilateral knees COMPLICATIONS/CHIEF COMPLAINT: Cellulitis Of R Lower Extremity. HISTORY OF PRESENT ILLNESS: 55 M with a past medical history of hypertension, hypercholesterolemia, obstruc tive sleep apnea on CPAP at home, PTSD, depression who presented with right leg swelling, erythema and drainage from the anterior aspect of tibia. He reported mowing the lawn and scratching his leg on some bushes and since then had become red and was draining some clear yellow fluids. HOSPITAL COURSE: On arrival to the ED, he found to have leukocytosis of 15.4, as well as fever to 102.6 and tachycardia of 108. Patient also had finally able crawl pressures are 100/50. Lactic acid 1.4. Patient was given a dose of Ceftin earlier in the ED and admitted to hospitalist service for management of sepsis secondary to right lower extremity cellulitis. Patient was started on empiric vancomycin with re solution of fevers and leukocytosis with improvement of RLE erythema and resolution of drainage. Wound culture grew Corynebacterium and coag negative staph while initial BCx had one bottle show GPRs on gram stain and 2nd set and repeat BCx were negative and was for now deemed a contaminant. He was t ransitioned to bactrim and is now being discharged with a 7d course of bactrim. He is also being discharged with nystatin powder for a fungal intertriginous rash. DISCHARGE MEDICATIONS: Please see below. ALLERGIES: Please see below. PHYSICAL EXAMINATION ON DISCHARGE: VITAL SIGNS: Please see below. GENERAL: NAD HEENT: Normocephalic, atraumatic. No scleral icterus, EOMI, nares patent, oropharyngeal mucosa moist. CARDIOVASCULAR: Distant, S1 and S2 auscultated , no murmurs, rubs, gallops could be appreciated. RESPIRATORY: Clear to auscultation bilaterally with decreased heart sounds secondary to body habitus. ABDOMINAL: Soft, nontender, nondistended, bowel sounds present. There is an intertriginous rash present of lower abdominal fold. EXTREMITIES: Improvement in R pitting edema with now receding anterior right lower extremity erythema and now dried previously draining shallow small ulcer on the anterior nava. Radial and pedal pulses equal and present bilaterally. NEUROLOGICAL: Grossly nonfocal examination PSYCHOLOGICAL: Aox3 LABORATORY DATA: Please see below. IMAGING: Bilateral LE venous doppler US: The calf veins could not be evaluated as discussed above. No evidence of DVT in the visualized bilateral lower extremities otherwise. CXR: POSSIBLE DEVELOPING RIGHT LOWER LOBE PNEUMONIA. PA AND LATERAL VIEWS OF THE CHEST RECOMMENDED. PA/lateral CXR: Lungs: Unremarkable. No consolidation. Pleural spaces: Unremarkable. No pleural effusion. No pneumothorax. Heart/Mediastinum: Unremarkable. No cardiomegaly. Bones/joints: Unremarkable. IMPRESSION: No acute findings. PROGNOSIS: Good ACTIVITY: As tolerated DIET: 2g sodium DISCHARGE PLAN: Home with bactrim, with close PCP follow up for BMP while on bactrim and resolution of cellulitis DISPOSITION: Home DISCHARGE INSTRUCTIONS: Home with bactrim, with close PCP follow up for BMP while on bactrim and resolut ion of cellulitis ITEMS TO FOLLOWUP ON ON OUTPATIENT: Cellulitis follow up BMP DISCHARGE CONDITION: Stable TIME SPENT ON DISCHARGE: 40 minutes. Vital Signs/I&Os Vital Signs Date Time Temp Pulse Resp B/P (MAP) Pulse Ox O2 Delivery O2 Flow Rate FiO2 03/21/21 08:00 97.4 81 18 120/68 (85) 94 Room Air I&O- Last 24 Hours up to 6 AM0 03/21/21 06:00 Intake Total 3990 ml Output Total 3000 ml Balance 990 ml Laboratory Data Labs 24H Laboratory Tests 2 03/21/21 07:00: Immature Granulocyte % (Auto) 0.4, Neutrophils (%) (Auto) 67.0H, Lymphocytes (%) (Auto) 19.5L, Monocytes (%) (Auto) 9.1H, Eosinophils (%) (Auto) 3.4H, Basophils (%) (Auto) 0.6, Neutrophils # (Auto) 3.4, Lymphocytes # (Auto) 1.0L, Monocytes # (Auto) 0.5, Eosinophils # (Auto) 0.2, Basophils # (Auto) 0.0, Nucleated Red Blood Cells % (auto) 0.0, Anion Gap 3L, Glomerular Filtration Rate > 60.0, Calcium Level 8.9, Magnesium Level 1.9, Total Bilirubin 0.4, Aspartate Amino Transf (AST/SGOT) 42H, Alanine Aminotransferase (ALT/SGPT) 51, Alkaline Phosphatase 86, C-Reactive Protein, Quantitative 11.70H, Total Protein 6.1L, Albumin 2.9L, Albumin/Globulin Ratio 0.9, Vancomycin Level Trough 21.9H CBC/BMP Laboratory Tests 03/21/21 07:00 Microbiology Microbiology 03/20/21 Blood Culture, Received Pending 03/20/21 Blood Culture - Preliminary, Resulted No growth after 24 hours . All specim... 03/19/21 Gram Stain - Final, Resulted 03/19/21 Wound Culture - Preliminary, Resulted Staphylococcus Sp Coag Neg Corynebacterium Species 03/18/21 Blood Culture - Preliminary, Resulted 03/18/21 Blood Culture - Preliminary, Resulted No Growth after 48 hours. All Specime... Discharge Medications Scheduled Bupropion HCl (Bupropion Xl) 300 Mg Tab.er.24h, 300 MG PO DAILY, (Reported) Lisinopril (Lisinopril) 30 Mg Tablet, 15 MG PO DAILY, (Reported) Lurasidone HCl (Latuda) 80 Mg Tablet, 40 MG PO DAILY, (Reported) Meloxicam (Meloxicam) 15 Mg Tablet, 15 MG PO DAILY, (Reported) Multivit-Minerals/Ferrous Fum (Multivitamin Liquid) 9 Mg/15 Ml Liquid, 15 ML PO BIDWM, (Reported) Nystatin (Nystop) 60 Gm Powder, 0 DOSE TOP DAILY Potassium Chloride (Potassium Chloride) 10 Meq Tablet.er, 20 MEQ PO DAILY, (Reported) Rosuvastatin Calcium (Crestor) 40 Mg Tablet, 40 MG PO DAILY, (Reported) Sulfamethoxazole/Trimethoprim (Bactrim Ds Tablet) 1 Each Tablet, 1 TAB PO BID Triamterene/Hydrochlorothiazid (Triamterene-Hctz 37.5-25 mg Cp) 1 Each Capsule, 1 CAP PO DAILY, (Reported) Scheduled PRN Diclofenac Sodium (Diclofenac Sodium) 1% 100GM Gel..gram., 4 GM TOP QID PRN for PAIN LEVEL 1-5, (Reported) APPLIES TO HANDS AND KNEES Allergies Coded Allergies: bee venom protein (honey bee) (Verified Allergy, Severe, 03/18/21) CORY LIMON MD Mar 21, 2021 09:52
[2021-03-21] MEDS ORDERED: VANCOMYCIN HCL 1,000 MG, VIAL MATE ADAPTER 1 EACH in NS 250 ML IV SCH (18:00)
== END 2021-03-21 12:35 | disposition home or self-care (01) | DRG 872 ==
LOC: EDBD 18:19 → M ED 18:19 → M ED INP 18:20 → ENRESERV 03-19 12:41 → M MS5PR 03-19 14:45 → OBSVTOIN 03-20 10:28
PROVIDERS: ADMIT Family Medicine; ATTEND Internal Medicine
DX: A41.9 Sepsis, unspecified organism (principal); L03.115 Cellulitis of right lower limb; Z68.43 Body mass index [BMI] 50.0-59.9, adult; I10 Essential (primary) hypertension; E78.5 Hyperlipidemia, unspecified; G47.33 Obstructive sleep apnea (adult) (pediatric); F43.10 Post-traumatic stress disorder, unspecified; E66.01 Morbid (severe) obesity due to excess calories; L30.4 Erythema intertrigo; F32.9 Major depressive disorder, single episode, unspecified; M17.0 Bilateral primary osteoarthritis of knee; Z87.891 Personal history of nicotine dependence; Z20.822 Contact with and (suspected) exposure to COVID-19; Z79.1 Long term (current) use of non-steroidal anti-inflammatories (NSAID); Z79.899 Other long term (current) drug therapy; Z91.030 Bee allergy status

== ENCOUNTER → 2023-03-06 | Outpatient (REF) | payer OTHER ==
[~2023-03-06] MED LIST changes: +BACT800T5 PO; +BUPR300T92 PO; +CRES40TA PO; +DICL1GEL3 TOP; +LATU80TA2 PO; +LISI30TA4 PO; +MELO15TA28 PO; +MULTLIQ7 PO; +NYST10006 TOP; +POTA1TAB23 PO; +TRIA37.577 PO
[2023-03-06 17:42] LABS: APPEARANCE, URINE CLEAR (CLEAR); BACTERIA, URINE AUTO 3+ (NEGATIVE); BILIRUBIN, URINE AUTO NEGATIVE (NEGATIVE); BLOOD, URINE BLOOD NEGATIVE (NEGATIVE); COLOR, URINE YELLOW (YELLOW); GLUCOSE, URINE (UA) AUTO NEGATIVE (NEGATIVE); KETONE, URINE AUTO NEGATIVE (NEGATIVE); LEUKOCYTE ESTERASE, URINE AUTO 1+ (NEGATIVE); NITRITE, URINE AUTO NEGATIVE (NEGATIVE); PROTEIN, URINE AUTO NEGATIVE (NEGATIVE); RBC, URINE AUTO 1 /HPF (0-3); SPECIFIC GRAVITY URINE AUTO 1.009 (1.002-1.035); SQUAMOUS EPITHELIAL CELL UR AU 0 /HPF (0-6); UROBILINOGEN, URINE AUTO 0.2 mg/dL (0.0-2.0); WBC, URINE AUTO 2 /HPF (0-3)
== END ==
LOC: M LAB REF 16:19
PROVIDERS: ATTEND Physician Assistant Medical
DX: N39.0 Urinary tract infection, site not specified (principal)

== ENCOUNTER → 2024-06-15 | Outpatient (CLI) | payer OTHER ==
[~2024-06-15] MED LIST changes: +BUPR-597 PO; -BUPR300T92 PO; +DICL100G10 TOP; -DICL1GEL3 TOP
== END ==
LOC: M RAD 11:37
PROVIDERS: ATTEND Pain Medicine Interventional Pain Medicine
DX: M17.0 Bilateral primary osteoarthritis of knee (principal); M23.331 Other meniscus derangements, other medial meniscus, right knee; M25.562 Pain in left knee; M25.561 Pain in right knee

== ENCOUNTER → 2024-07-02 | Outpatient (CLI) | payer OTHER | LOC: M PLAIMG 07:24 | PROVIDERS: ATTEND Pain Medicine Interventional Pain Medicine | DX: M47.817 Spondylosis without myelopathy or radiculopathy, lumbosacral region (principal) ==

== ENCOUNTER → 2024-07-12 | Outpatient (CLI) | payer OTHER | LOC: M PLARAD 14:10 | PROVIDERS: ATTEND Pain Medicine Interventional Pain Medicine | DX: M16.12 Unilateral primary osteoarthritis, left hip (principal) ==

== ENCOUNTER → 2024-09-20 | Outpatient (REF) | payer OTHER ==
[2024-09-20 17:16] LABS: APPEARANCE, URINE CLEAR (CLEAR); BACTERIA, URINE AUTO NEGATIVE (NEGATIVE); BILIRUBIN, URINE AUTO NEGATIVE (NEGATIVE); BLOOD, URINE BLOOD NEGATIVE (NEGATIVE); COLOR, URINE STRAW (YELLOW); GLUCOSE, URINE (UA) AUTO NEGATIVE (NEGATIVE); KETONE, URINE AUTO NEGATIVE (NEGATIVE); LEUKOCYTE ESTERASE, URINE AUTO NEGATIVE (NEGATIVE); NITRITE, URINE AUTO NEGATIVE (NEGATIVE); PROTEIN, URINE AUTO NEGATIVE (NEGATIVE); RBC, URINE AUTO 0 /HPF (0-3); SPECIFIC GRAVITY URINE AUTO 1.005 (1.002-1.035); SQUAMOUS EPITHELIAL CELL UR AU 2 /HPF (0-6); UROBILINOGEN, URINE AUTO 0.2 mg/dL (0.0-2.0); WBC, URINE AUTO 0 /HPF (0-3)
== END ==
LOC: M LAB REF 16:19
PROVIDERS: ATTEND Physician Assistant Medical
DX: N39.0 Urinary tract infection, site not specified (principal)

== ENCOUNTER → 2025-02-03 | Outpatient (REF) | payer OTHER ==
[~2025-02-03] MED LIST changes: -BUPR-597 PO; +BUPR-766 PO
[2025-02-03 18:23] LABS: APPEARANCE, URINE CLEAR (CLEAR); BACTERIA, URINE AUTO NEGATIVE (NEGATIVE); BILIRUBIN, URINE AUTO NEGATIVE (NEGATIVE); BLOOD, URINE BLOOD NEGATIVE (NEGATIVE); COLOR, URINE YELLOW (YELLOW); GLUCOSE, URINE (UA) AUTO NEGATIVE (NEGATIVE); KETONE, URINE AUTO NEGATIVE (NEGATIVE); LEUKOCYTE ESTERASE, URINE AUTO NEGATIVE (NEGATIVE); NITRITE, URINE AUTO NEGATIVE (NEGATIVE); PROTEIN, URINE AUTO NEGATIVE (NEGATIVE); RBC, URINE AUTO 0 /HPF (0-3); SPECIFIC GRAVITY URINE AUTO 1.011 (1.002-1.035); SQUAMOUS EPITHELIAL CELL UR AU 1 /HPF (0-6); UROBILINOGEN, URINE AUTO 0.2 mg/dL (0.0-2.0); WBC, URINE AUTO 0 /HPF (0-3)
== END ==
LOC: M LAB REF 17:12
PROVIDERS: ATTEND Physician Assistant Medical
DX: N39.0 Urinary tract infection, site not specified (principal)